=== PATIENT | male | born 1960 | race Caucasian/White ===

== ENCOUNTER 2022-01-21 20:34 | Emergency (ER) | payer SELFPAY ==
[2022-01-21] MEDS ORDERED: Ondansetron PF 4 MG/2 ML Vial ONE (21:19)
[2022-01-21] MEDS ORDERED: Pantoprazole 40 MG VIAL ONE (21:19)
[2022-01-21] MEDS ORDERED: Pantoprazole 80 MG in Sodium Chloride 0.9% 100 ML IVPB SCH (21:30)
[2022-01-21 21:39] LABS: #Eosinphils 0.4 thou/uL (0.0-0.7); #Lymphocytes 2.2 thou/uL (1.20-3.40); #Monocytes 0.7 thou/uL (0.11-0.59); #Neutrophils 5.3 thou/uL (1.40-6.50); %Basophils 0.5 % (0.0-1.0); %Eosinophils 5.1 % (0.0-10.0); %Monocytes 8.3 % (0.0-10.0); Hemoglobin 13.8 g/dL (14.0-18.0); Mean Corpuscular Hemoglobin 32.4 pg (27.0-31.0); Mean Corpuscular Volume 95.1 fl (78.0-98.0); Mean Platelet Volume 6.9 fL (7.4-10.4); Platelet Count 183 thou/uL (130-400); RBC Distribution Width 12.3 % (11.5-14.5); Red Blood Cell (RBC) Count 4.27 mill/uL (4.70-6.10); White Blood Cell (WBC) Count 8.8 thou/uL (4.8-10.8)
[2022-01-21 22:14] LABS: Anion Gap 15 mmol/L (10-20); BUN (Urea Nitrogen) Less than 4 mg/dL (8.4-25.7); Calc. Creatinine Clearance 0 mL/min (70-130); Carbon Dioxide 20 mmol/L (22-29); Chloride 100 mmol/L (98-107); Potassium 3.6 mmol/L (3.5-5.1); Sodium 131 mmol/L (136-145)
[2022-01-21 22:15] LABS: ALT (SGPT) 17 U/L (8-55); AST (SGOT) 21 U/L (5-34); Acetaminophen Less than 10.0 mcg/mL (10.0-30.0); Alcohol 200 mg/dL (Less than 10); Alkaline Phosphatase 74 U/L (40-110); Bilirubin, Total 0.6 mg/dL (0.2-1.2); CK (CPK) 114 U/L (30-200); Calcium 8.8 mg/dL (7.8-10.44); Estimated GFR 106; Globulin 2.8 g/dL (2.4-3.5); Glucose 111 mg/dL (70-105); Lipase 5 U/L (8-78); Protein, Total 6.8 g/dL (6.0-8.3); Salicylate Less than 8.0 mg/dL (15.0-30.0)
[2022-01-21 22:26] LABS: Bilirubin Negative (Negative); Blood, Urine Negative (Negative); Clarity Clear (Clear); Glucose, Urine (Dipstick) Normal (Negative); Ketone, Urine Negative (Negative); Leukocyte Negative Leu/uL (Negative); Nitrite Negative (Negative); Protein, Urine (Dipstick) Negative (Neg-Trace); Specific Gravity, Urine 1.003 (1.002-1.036); Urobilinogen Normal mg/dL (Less than 2); pH, Urine 6.5 (5.0-9.0)
[2022-01-21 22:35] LABS: Amphetamine Not Detected (NotDetected); Barbiturates Screen Not Detected (NotDetected); Benzodiazepine Screen Detected (NotDetected); Cocaine Metabolite Screen Not Detected (NotDetected); Methadone Not Detected (NotDetected); Methamphetamine Not Detected (NotDetected); Opiate Screen Not Detected (NotDetected); Oxycodone Screen Not Detected (NotDetected); Phencyclidine (PCP) Not Detected (NotDetected); THC/Cannabinoid Screen Detected (NotDetected); Tricyclic Screen Not Detected (NotDetected)
[2022-01-22] MEDS ORDERED: Pantoprazole 80 MG, Admixture Fee 1 EACH in Sodium Chloride 0.9% 100 ML IVPB SCH (07:00)
[2022-01-22] MEDS ORDERED: Acetaminophen 500 MG TAB ONE (11:43)
[2022-01-22] MEDS ORDERED: Lidocaine Viscous Sol 2% 15 ml UD Cup ONE ×4 (14:53→23:38)
[2022-01-22] MEDS ORDERED: Mag-Al 1200 mg/1200 mg/30 ML UDCUP ONE ×4 (14:53→23:38)
== END 2022-01-23 09:05 | disposition home or self-care (01) ==
LOC: ERS 20:34
DX: F32.A Depression, unspecified (principal); F10.20 Alcohol dependence, uncomplicated; F19.10 Other psychoactive substance abuse, uncomplicated; E03.9 Hypothyroidism, unspecified
CPT/HCPCS: 36415; 71045; 80053; 80306; 80307; 81003; 82550; 83690; 84443; 85025; 93005; 96374; C9113; J2405; J3490

== ENCOUNTER 2023-03-30 19:24 | Emergency (ER) | payer SELFPAY ==
[2023-03-31] MEDS ORDERED: Acetaminophen 325 MG Suppository ONE (02:31)
[2023-03-31] MEDS ORDERED: Acetaminophen 325 MG TAB ONE (02:32)
== END 2023-03-31 03:58 | disposition home or self-care (01) ==
LOC: ERS 19:24
DX: S00.81XA Abrasion of other part of head, initial encounter (principal); S10.11XA Abrasion of throat, initial encounter; F17.210 Nicotine dependence, cigarettes, uncomplicated; E03.9 Hypothyroidism, unspecified; Z79.890 Hormone replacement therapy; W19.XXXA Unspecified fall, initial encounter
CPT/HCPCS: 70450; 72125; 96372

== ENCOUNTER 2023-04-17 00:06 | Inpatient (IN) | payer OTHER, SELFPAY ==
[2023-04-17] MEDS ORDERED: Acetaminophen 500 MG TAB ONE (00:20)
[2023-04-17] MEDS ORDERED: Ketorolac Tromethamine 30 MG (1 mL) VIAL ONE (00:21)
[2023-04-17 00:54] LABS: #Basophils 0.1 thou/uL (0.0-0.2); #Eosinphils 0.3 thou/uL (0.0-0.7); #Monocytes 0.9 thou/uL (0.11-0.59); #Neutrophils 11.4 thou/uL (1.40-6.50); %Basophils 0.4 % (0.0-1.0); %Eosinophils 2.2 % (0.0-10.0); %Lymphocytes 14.3 % (21.0-51.0); %Monocytes 6.1 % (0.0-10.0); %Neutrophils 75.9 % (42.0-75.0); Hematocrit 42.3 % (42.0-52.0); Hemoglobin 13.9 g/dL (14.0-18.0); Mean Corpuscular HGB CONC 32.9 g/dL (32.0-36.0); Mean Corpuscular Hemoglobin 29.4 pg (27.0-31.0); Mean Corpuscular Volume 89.6 fl (78.0-98.0); Mean Platelet Volume 8.9 fL (7.4-10.4); Platelet Count 381 10x3/uL (130-400); Red Blood Cell (RBC) Count 4.72 mill/uL (4.70-6.10)
[2023-04-17 01:17] LABS: ALT (SGPT) 9 U/L (8-55); AST (SGOT) 14 U/L (5-34); Albumin 3.3 g/dL (3.4-4.8); Alkaline Phosphatase 63 U/L (40-110); Anion Gap 11 mmol/L (10-20); BUN (Urea Nitrogen) 11 mg/dL (8.4-25.7); Bilirubin, Total 0.2 mg/dL (0.2-1.2); Calc. Creatinine Clearance 0 mL/min (70-130); Calcium 8.3 mg/dL (7.8-10.44); Carbon Dioxide 24 mmol/L (23-31); Chloride 103 mmol/L (98-107); Estimated GFR 101; Globulin 2.3 g/dL (2.4-3.5); Glucose 151 mg/dL (80-115); Potassium 4.4 mmol/L (3.5-5.1); Protein, Total 5.6 g/dL (5.8-8.1); Sodium 134 mmol/L (136-145)
[2023-04-17 01:21] LABS: Troponin I Less than 0.010 ng/mL (< 0.028)
[2023-04-17] MEDS ORDERED: Sodium Chloride 0.9% 100 ML ONE (03:19)
[2023-04-17] MEDS ORDERED: Piperacillin/Tazobactam 4.5 GM VIAL ONE (03:19)
[2023-04-17 03:56] LABS: Lipase 161 U/L (8-78); Magnesium 1.8 mg/dL (1.6-2.6)
[2023-04-17] MEDS ORDERED: Ondansetron PF 4 MG/2 ML Vial ONE (04:45)
[2023-04-17] MEDS ORDERED: Morphine 4 MG/ML VIAL ONE (04:45)
[2023-04-17] MEDS ORDERED: Ondansetron ODT 4 MG TAB SL PRN (06:00)
[2023-04-17] MEDS ORDERED: Ondansetron PF 4 MG/2 ML Vial IVP PRN (06:00)
[2023-04-17 06:33] VITALS: BMI 26.6
[2023-04-17 06:43] LABS: Troponin I Less than 0.010 ng/mL (< 0.028)
[2023-04-17] MEDS ORDERED: Senokot S 8.6-50 MG TAB PO PRN (07:52)
[2023-04-17] MEDS ORDERED: Ketorolac Tromethamine 30 MG (1 mL) VIAL IVP PRN (07:54)
[2023-04-17] MEDS ORDERED: Dextrose 5% in Water 1,000 ML IV PRN (07:56)
[2023-04-17] MEDS ORDERED: Glucagon 1 MG/ML KIT IM PRN (07:56)
[2023-04-17] MEDS ORDERED: Dextrose 50% Abboject 50 ML SYRINGE SLOW IVP PRN (07:56)
[2023-04-17] MEDS ORDERED: metFORMIN 500 MG TAB PO SCH (08:00)
[2023-04-17] MEDS: Morphine 4 MG/ML VIAL SLOW IVP PRN ×2 (09:03→13:23)
[2023-04-17] MEDS: Sodium Chloride 0.9% 1,000 ML IV SCH ×2 (09:04→17:53)
[2023-04-17] MEDS ORDERED: Piperacillin/Tazobactam 4.5 GM in Sodium Chloride 0.9% 100 ML IVPB SCH (09:45)
[2023-04-17] MEDS ORDERED: Pantoprazole 40 MG VIAL IVP SCH (10:00)
[2023-04-17 10:41] LABS: Hemoglobin A1c 6.3 % (4.0-6.0)
[2023-04-17 10:50] LABS: Anion Gap 9 mmol/L (10-20); BUN (Urea Nitrogen) 8 mg/dL (8.4-25.7); Calc. Creatinine Clearance 119 mL/min (70-130); Calcium 8.1 mg/dL (7.8-10.44); Carbon Dioxide 25 mmol/L (23-31); Chloride 106 mmol/L (98-107); Estimated GFR 104; Glucose 95 mg/dL (80-115); Lipase 225 U/L (8-78); Potassium 4.2 mmol/L (3.5-5.1); Sodium 136 mmol/L (136-145)
[2023-04-17 10:51] LABS: Cardiac Risk 3.9 (Less than 4.5)
[2023-04-17 10:57] LABS: Troponin I Less than 0.010 ng/mL (< 0.028)
[2023-04-17] MEDS ORDERED: Iopamidol 370 76% 100 ML VIAL ONE ×2 (14:21→14:22)
[2023-04-17] MEDS: Piperacillin/Tazobactam 3.375 GM in Sodium Chloride 0.9% 100 ML IVPB SCH ×2 (14:44→21:23)
[2023-04-17] MEDS: Morphine 2 MG/ML VIAL SLOW IVP PRN ×2 (17:52→21:24)
[2023-04-17] MEDS: Pantoprazole 40 MG VIAL IVP SCH (20:03)
[2023-04-17] MEDS: Acetaminophen 325 MG TAB PO PRN (20:03)
[2023-04-17] MEDS: Insulin Regular 300 UNITS/3 ML VIAL SC PRN (20:04)
[2023-04-18] MEDS: Piperacillin/Tazobactam 3.375 GM in Sodium Chloride 0.9% 100 ML IVPB SCH ×3 (05:20→21:02)
[2023-04-18] MEDS: Levothyroxine Sodium 50 MCG TAB PO SCH (05:20)
[2023-04-18] MEDS: Morphine 2 MG/ML VIAL SLOW IVP PRN ×4 (05:21→18:53)
[2023-04-18 06:31] LABS: #Basophils 0.1 thou/uL (0.0-0.2); #Eosinphils 0.3 thou/uL (0.0-0.7); #Monocytes 0.8 thou/uL (0.11-0.59); #Neutrophils 8.7 thou/uL (1.40-6.50); %Basophils 0.6 % (0.0-1.0); %Eosinophils 2.9 % (0.0-10.0); %Monocytes 6.8 % (0.0-10.0); %Neutrophils 74.9 % (42.0-75.0); Hemoglobin 12.3 g/dL (14.0-18.0); Mean Corpuscular HGB CONC 32.4 g/dL (32.0-36.0); Mean Corpuscular Hemoglobin 29.6 pg (27.0-31.0); Mean Corpuscular Volume 91.6 fl (78.0-98.0); Mean Platelet Volume 9.4 fL (7.4-10.4); Platelet Count 356 10x3/uL (130-400); RBC Distribution Width 14.7 % (11.5-14.5); Red Blood Cell (RBC) Count 4.15 mill/uL (4.70-6.10); White Blood Cell (WBC) Count 11.6 10x3/uL (4.8-10.8)
[2023-04-18 07:05] LABS: ALT (SGPT) 7 U/L (8-55); AST (SGOT) 10 U/L (5-34); Albumin 2.9 g/dL (3.4-4.8); Alkaline Phosphatase 52 U/L (40-110); Anion Gap 8 mmol/L (10-20); BUN (Urea Nitrogen) 6 mg/dL (8.4-25.7); Bilirubin, Total 0.5 mg/dL (0.2-1.2); Calc. Creatinine Clearance 118 mL/min (70-130); Carbon Dioxide 26 mmol/L (23-31); Chloride 105 mmol/L (98-107); Estimated GFR 104; Glucose 83 mg/dL (80-115); Potassium 4.2 mmol/L (3.5-5.1); Protein, Total 4.9 g/dL (5.8-8.1); Sodium 135 mmol/L (136-145)
[2023-04-18] MEDS: Pantoprazole 40 MG VIAL IVP SCH ×2 (08:12→20:16)
[2023-04-18] MEDS ORDERED: Pantoprazole 40 MG VIAL IVP SCH (09:00)
[2023-04-18] MEDS ORDERED: PROPOFOL 20 ML ONE (09:07)
[2023-04-18] MEDS ORDERED: Lidocaine 2% PF 5 ML VIAL ONE (09:07)
[2023-04-18] MEDS ORDERED: PROPOFOL 0 ML ONE (09:07)
[2023-04-18] MEDS ORDERED: Ondansetron HCl/PF 4 MG/2 ML Vial IVP PRN (09:23)
[2023-04-18] MEDS ORDERED: Promethazine HCl 25 MG/ML VIAL IM PRN (09:23)
[2023-04-18] MEDS ORDERED: traMADol HCl 50 MG TAB PO PRN (10:42)
[2023-04-18] MEDS: Acetaminophen 325 MG TAB PO PRN (20:22)
[2023-04-19] MEDS: Morphine 2 MG/ML VIAL SLOW IVP PRN ×3 (01:42→09:56)
[2023-04-19] MEDS: Levothyroxine Sodium 50 MCG TAB PO SCH (05:50)
[2023-04-19] MEDS: Insulin Regular 300 UNITS/3 ML VIAL SC PRN (05:51)
[2023-04-19] MEDS: Piperacillin/Tazobactam 3.375 GM in Sodium Chloride 0.9% 100 ML IVPB SCH (05:51)
[2023-04-19 07:22] LABS: #Basophils 0.1 thou/uL (0.0-0.2); #Eosinphils 0.3 thou/uL (0.0-0.7); #Monocytes 0.7 thou/uL (0.11-0.59); #Neutrophils 7.2 thou/uL (1.40-6.50); %Basophils 0.7 % (0.0-1.0); %Eosinophils 3.2 % (0.0-10.0); %Lymphocytes 14.6 % (21.0-51.0); %Monocytes 7.3 % (0.0-10.0); %Neutrophils 73.5 % (42.0-75.0); Hematocrit 42.3 % (42.0-52.0); Hemoglobin 13.6 g/dL (14.0-18.0); Mean Corpuscular HGB CONC 32.2 g/dL (32.0-36.0); Mean Corpuscular Hemoglobin 29.4 pg (27.0-31.0); Mean Corpuscular Volume 91.4 fl (78.0-98.0); Mean Platelet Volume 8.9 fL (7.4-10.4); Platelet Count 418 10x3/uL (130-400); RBC Distribution Width 14.5 % (11.5-14.5); Red Blood Cell (RBC) Count 4.63 mill/uL (4.70-6.10); White Blood Cell (WBC) Count 9.8 10x3/uL (4.8-10.8)
[2023-04-19 07:43] LABS: Anion Gap 11 mmol/L (10-20); BUN (Urea Nitrogen) 8 mg/dL (8.4-25.7); Calc. Creatinine Clearance 105 mL/min (70-130); Calcium 8.8 mg/dL (7.8-10.44); Carbon Dioxide 27 mmol/L (23-31); Chloride 102 mmol/L (98-107); Estimated GFR 100; Glucose 113 mg/dL (80-115); Potassium 4.1 mmol/L (3.5-5.1); Sodium 136 mmol/L (136-145)
[2023-04-19 08:15] VITALS: TEMP 98.3
[2023-04-19] MEDS: Acetaminophen 325 MG TAB PO PRN (08:40)
[2023-04-19] MEDS: Pantoprazole 40 MG VIAL IVP SCH (08:40)
[2023-04-19 13:46] VITALS: BP 133/85
== END 2023-04-19 12:47 | disposition home or self-care (01) | DRG 439 ==
LOC: ERS 00:06 → T4-A 05:46
PROVIDERS: ADMIT Student in an Organized Health Care Education/Training Program; ATTEND Internal Medicine
PROC: 0DB78ZX Excision of Stomach, Pylorus, Via Natural or Artificial Opening Endoscopic, Diagnostic (ICD-10-PCS; principal; 2023-04-18)
DX: K85.90 Acute pancreatitis without necrosis or infection, unspecified (principal); I82.891 Chronic embolism and thrombosis of other specified veins; Z59.01 Sheltered homelessness; K76.6 Portal hypertension; K86.3 Pseudocyst of pancreas; E03.9 Hypothyroidism, unspecified; K86.1 Other chronic pancreatitis; K31.89 Other diseases of stomach and duodenum; E11.9 Type 2 diabetes mellitus without complications; D73.89 Other diseases of spleen; M54.9 Dorsalgia, unspecified; F17.210 Nicotine dependence, cigarettes, uncomplicated; L40.9 Psoriasis, unspecified; F10.10 Alcohol abuse, uncomplicated; K29.70 Gastritis, unspecified, without bleeding; Z79.890 Hormone replacement therapy; Z79.899 Other long term (current) drug therapy
CPT/HCPCS: 36415; 36416; 71045; 71275; 74177; 80048; 80053; 80061; 83036; 83690; 83735; 84443; 84484; 85025; 85379; 86140; 87040; 88305; 93005; 94760; 96365; 96372; 96375; C9113; J1815; J1885; J2001; J2270; J2272; J2405; J2543; J2704; J3490; J7050; Q9967

== ENCOUNTER 2023-11-22 16:09 | Inpatient (IN) | payer OTHER ==
[~2023-11-22 16:09] MED LIST: Iopamidol-370 76% 500 ML MDV (1 ML CHARGE) ONE
[2023-11-22 16:38] LABS: #Basophils 0.05 10x3/uL (0.0-0.2); %Basophils 0.6 % (0.0-1.0); %Eosinophils 1.2 % (0.0-10.0); %Lymphocytes 21.5 % (21.0-51.0); %Monocytes 7.5 % (0.0-10.0); %Neutrophils 68.7 % (42.0-75.0); Hematocrit 38.7 % (42.0-52.0); Hemoglobin 13.1 g/dL (14.0-18.0); Mean Corpuscular HGB CONC 33.9 g/dL (32.0-36.0); Mean Corpuscular Hemoglobin 30.1 pg (27.0-31.0); Mean Platelet Volume 8.6 fL (7.4-10.4); Platelet Count 201 10x3/uL (130-400); RBC Distribution Width 14.6 % (11.5-14.5); Red Blood Cell (RBC) Count 4.35 mill/uL (4.70-6.10)
[2023-11-22 17:11] LABS: Troponin I Less than 0.010 ng/mL (< 0.028)
[2023-11-22 17:12] LABS: Acetaminophen Less than 10 mcg/mL (Less than 10); Alcohol 117.8 mg/dL (Less than 10); Salicylate Less than 8.0 mg/dL (Less than 8.0)
[2023-11-22 17:17] LABS: ALT (SGPT) 12 U/L (8-55); AST (SGOT) 52 U/L (5-34); Albumin 3.3 g/dL (3.4-4.8); Alkaline Phosphatase 62 U/L (40-110); Anion Gap 19 mmol/L (10-20); BUN (Urea Nitrogen) 5 mg/dL (8.4-25.7); Bilirubin, Total 0.9 mg/dL (0.2-1.2); Calc. Creatinine Clearance 0 mL/min (70-130); Calcium 8.4 mg/dL (7.8-10.44); Carbon Dioxide 15 mmol/L (23-31); Chloride 97 mmol/L (98-107); Estimated GFR 102; Glucose 284 mg/dL (80-115); Potassium 5.2 mmol/L (3.5-5.1); Protein, Total 7.3 g/dL (5.8-8.1); Sodium 126 mmol/L (136-145)
[2023-11-22] MEDS ORDERED: Morphine 2 MG/ML VIAL ONE (17:38)
[2023-11-22] MEDS ORDERED: Ondansetron PF 4 MG/2 ML Vial ONE (17:39)
[2023-11-22 18:04] LABS: Alcohol 96.9 mg/dL (Less than 10)
[2023-11-22 18:38] LABS: Bacteria/HPF None Seen HPF (None Seen); Bilirubin Negative (Negative); Blood, Urine Negative (Negative); CAUTI Indications for Culture Alt mental st,lethar; Clarity Clear (Clear); Glucose, Urine (Dipstick) Greater than 1000 mg/dL (Negative); Ketone, Urine Negative (Negative); Leukocyte Negative Leu/uL (Negative); Nitrite Negative (Negative); Protein, Urine (Dipstick) Negative (Neg-Trace); RBC/HPF 0-3 HPF (0-3); Specific Gravity, Urine 1.005 (1.002-1.036); Squamous Epithelial None Seen HPF (0-3); Urobilinogen Normal mg/dL (Less than 2); WBC/HPF 0-3 HPF (0-3); pH, Urine 5.5 (5.0-9.0)
[2023-11-22 18:40] LABS: Urine Culture Reflex No No
[2023-11-22] MEDS ORDERED: LORazepam 2 MG/ML SYR.(CARPUJECT) ONE (20:20)
[2023-11-22] MEDS ORDERED: Thiamine HCl 200 MG/2 ML VIAL ONE (21:14)
[2023-11-22] MEDS ORDERED: Pantoprazole 40 MG VIAL ONE (21:14)
[2023-11-22] MEDS ORDERED: Morphine 4 MG/ML VIAL ONE (21:14)
[2023-11-22] MEDS ORDERED: Lorazepam 2 MG/ML VIAL IM PRN (22:35)
[2023-11-22] MEDS ORDERED: Ondansetron ODT 4 MG TAB PO PRN ×2 (22:35)
[2023-11-22] MEDS ORDERED: Acetaminophen 325 MG TAB PO PRN (22:35)
[2023-11-22] MEDS ORDERED: Ondansetron PF 4 MG/2 ML Vial IVP PRN (22:35)
[2023-11-22] MEDS ORDERED: Acetaminophen 650 MG Suppository PR PRN (22:35)
[2023-11-22] MEDS ORDERED: Electrolyte Replacement Protocol 1 EACH FS SCH (22:45)
[2023-11-22 23:49] VITALS: BMI 25.7
[2023-11-22] MEDS: Dextrose 5%-Lactated Ringers 1,000 ML IV SCH (23:57)
[2023-11-22] MEDS: Thiamine HCl 200 MG/2 ML VIAL SLOW IVP SCH (23:57)
[2023-11-22] MEDS: Lorazepam 1 MG TAB PO SCH (23:57)
[2023-11-23] MEDS: Morphine 2 MG/ML VIAL SLOW IVP PRN (01:21)
[2023-11-23] MEDS: Levothyroxine Sodium 88 MCG TAB PO SCH (05:43)
[2023-11-23 05:46] LABS: #Basophils 0.05 10x3/uL (0.0-0.2); %Basophils 0.9 % (0.0-1.0); %Eosinophils 2.8 % (0.0-10.0); %Lymphocytes 32.5 % (21.0-51.0); %Monocytes 9.8 % (0.0-10.0); %Neutrophils 53.5 % (42.0-75.0); Hematocrit 39.3 % (42.0-52.0); Hemoglobin 12.9 g/dL (14.0-18.0); Mean Corpuscular HGB CONC 32.8 g/dL (32.0-36.0); Mean Corpuscular Hemoglobin 29.7 pg (27.0-31.0); Mean Corpuscular Volume 90.6 fL (78.0-98.0); Platelet Count 227 10x3/uL (130-400); RBC Distribution Width 15.1 % (11.5-14.5); Red Blood Cell (RBC) Count 4.34 mill/uL (4.70-6.10)
[2023-11-23 06:05] LABS: ALT (SGPT) 7 U/L (8-55); AST (SGOT) 13 U/L (5-34); Albumin 3.1 g/dL (3.4-4.8); Alkaline Phosphatase 59 U/L (40-110); Anion Gap 13 mmol/L (10-20); BUN (Urea Nitrogen) 6 mg/dL (8.4-25.7); Calc. Creatinine Clearance 106 mL/min (70-130); Calcium 8.4 mg/dL (7.8-10.44); Carbon Dioxide 22 mmol/L (23-31); Chloride 105 mmol/L (98-107); Estimated GFR 102; Globulin 2.7 g/dL (2.4-3.5); Glucose 205 mg/dL (80-115); Protein, Total 5.8 g/dL (5.8-8.1); Sodium 136 mmol/L (136-145)
[2023-11-23 06:11] LABS: Hemoglobin A1c 9.5 % (4.0-6.0)
[2023-11-23] MEDS ORDERED: Dextrose 5% in Water 1,000 ML IV PRN (06:42)
[2023-11-23] MEDS ORDERED: Glucagon 1 MG/ML KIT IM PRN (06:42)
[2023-11-23] MEDS: Nadolol 40 MG TAB PO SCH (08:37)
[2023-11-23] MEDS: Folic Acid 1 MG TAB PO SCH (08:37)
[2023-11-23] MEDS: Pancrelipase DR 12,000 1 CAP PO SCH (08:37)
[2023-11-23] MEDS: Pantoprazole DR 40 MG TAB PO SCH (08:37)
[2023-11-23] MEDS: Multivit, Therapeutic 1 TAB PO SCH (08:37)
[2023-11-23] MEDS: Amlodipine 5 MG TAB PO SCH (08:37)
[2023-11-23] MEDS: metFORMIN 500 MG TAB PO SCH (08:37)
[2023-11-23] MEDS: Lorazepam 1 MG TAB PO PRN ×2 (08:42→14:36)
[2023-11-23] MEDS: Insulin Lispro 100 UNIT/ML 10 ML VIAL SC PRN (12:13)
[2023-11-23] MEDS: Dextrose 50% Abboject 50 ML SYRINGE SLOW IVP PRN (16:06)
[2023-11-24 08:17] LABS: Anion Gap 14 mmol/L (10-20); BUN (Urea Nitrogen) Less than 4 mg/dL (8.4-25.7); Calc. Creatinine Clearance 110 mL/min (70-130); Calcium 8.5 mg/dL (7.8-10.44); Carbon Dioxide 21 mmol/L (23-31); Chloride 106 mmol/L (98-107); Estimated GFR 104; Glucose 200 mg/dL (80-115); Potassium 4.2 mmol/L (3.5-5.1); Sodium 137 mmol/L (136-145)
[2023-11-24 14:21] VITALS: BP 125/78; TEMP 98.6
[2023-11-24] MEDS ORDERED: Lorazepam 1 MG TAB PO PRN (22:35)
[2023-11-24] MEDS ORDERED: Lorazepam 0.5 MG TAB PO SCH (22:45)
[2023-11-25] MEDS ORDERED: Thiamine 100 MG TAB PO SCH (21:00)
[2023-11-25] MEDS ORDERED: Lorazepam 0.5 MG TAB PO PRN (22:35)
== END 2023-11-24 13:45 | disposition home or self-care (01) | DRG 439 ==
LOC: ERS 16:09 → T4-B 22:17
PROVIDERS: ADMIT Student in an Organized Health Care Education/Training Program; ATTEND Internal Medicine
DX: K85.90 Acute pancreatitis without necrosis or infection, unspecified (principal); E87.1 Hypo-osmolality and hyponatremia; Z59.00 Homelessness unspecified; F10.10 Alcohol abuse, uncomplicated; I10 Essential (primary) hypertension; E03.9 Hypothyroidism, unspecified; E11.9 Type 2 diabetes mellitus without complications; Z79.899 Other long term (current) drug therapy; Z79.84 Long term (current) use of oral hypoglycemic drugs; K86.1 Other chronic pancreatitis; Z87.891 Personal history of nicotine dependence; E87.5 Hyperkalemia
CPT/HCPCS: 36415; 36416; 74177; 80048; 80053; 80307; 81001; 83036; 83690; 84484; 85025; 87086; 93005; 96361; 96374; 96375; 96376; J2060; J2272; J2405; J2470; J3411; J7999; Q9967

== ENCOUNTER 2023-12-04 18:29 | Inpatient (IN) | payer OTHER ==
[2023-12-04] MEDS ORDERED: Ondansetron PF 4 MG/2 ML Vial ONE (18:54)
[2023-12-04] MEDS ORDERED: fentaNYL 50 mcg/mL 1 mL Vial ONE ×2 (18:54→21:21)
[2023-12-04 19:12] LABS: #Basophils 0.05 10x3/uL (0.0-0.2); %Basophils 0.4 % (0.0-1.0); %Eosinophils 1.4 % (0.0-10.0); %Lymphocytes 25.9 % (21.0-51.0); %Monocytes 5.7 % (0.0-10.0); %Neutrophils 65.8 % (42.0-75.0); Hematocrit 38.2 % (42.0-52.0); Hemoglobin 12.7 g/dL (14.0-18.0); Mean Corpuscular HGB CONC 33.2 g/dL (32.0-36.0); Mean Corpuscular Hemoglobin 30.6 pg (27.0-31.0); Mean Platelet Volume 8.6 fL (7.4-10.4); Platelet Count 247 10x3/uL (130-400); RBC Distribution Width 14.6 % (11.5-14.5); Red Blood Cell (RBC) Count 4.15 mill/uL (4.70-6.10)
[2023-12-04 19:25] LABS: PTT 30.8 sec (22.9-36.1); Prothrombin Time 13.1 sec (12.0-14.7)
[2023-12-04 19:32] LABS: ALT (SGPT) 6 U/L (8-55); AST (SGOT) 14 U/L (5-34); Albumin 3.4 g/dL (3.4-4.8); Alkaline Phosphatase 60 U/L (40-110); Anion Gap 15 mmol/L (10-20); BUN (Urea Nitrogen) 4 mg/dL (8.4-25.7); Bilirubin, Total 0.7 mg/dL (0.2-1.2); Calc. Creatinine Clearance 0 mL/min (70-130); Calcium 8.4 mg/dL (7.8-10.44); Carbon Dioxide 16 mmol/L (23-31); Chloride 97 mmol/L (98-107); Estimated GFR 105; Globulin 2.8 g/dL (2.4-3.5); Glucose 181 mg/dL (80-115); Lipase 16 U/L (8-78); Potassium 3.5 mmol/L (3.5-5.1); Protein, Total 6.2 g/dL (5.8-8.1); Sodium 124 mmol/L (136-145)
[2023-12-04 19:33] LABS: Troponin I Less than 0.010 ng/mL (< 0.028)
[2023-12-04 19:33] LABS: Acetaminophen Less than 10 mcg/mL (Less than 10); Alcohol 231.7 mg/dL (Less than 10); Salicylate Less than 8.0 mg/dL (Less than 8.0)
[2023-12-04 20:23] LABS: Amphetamine Not Detected (NotDetected); Barbiturates Screen Not Detected (NotDetected); Benzodiazepine Screen Not Detected (NotDetected); Cocaine Metabolite Screen Not Detected (NotDetected); Methadone Not Detected (NotDetected); Methamphetamine Not Detected (NotDetected); Opiate Screen Not Detected (NotDetected); Oxycodone Screen Not Detected (NotDetected); Phencyclidine (PCP) Not Detected (NotDetected); THC/Cannabinoid Screen Not Detected (NotDetected); Tricyclic Screen Not Detected (NotDetected)
[2023-12-04] MEDS ORDERED: Acetaminophen 650 MG Suppository PR PRN (21:41)
[2023-12-04] MEDS ORDERED: Lorazepam 1 MG TAB PO PRN (21:44)
[2023-12-04] MEDS ORDERED: Lorazepam 2 MG/ML VIAL IM PRN (21:44)
[2023-12-04] MEDS ORDERED: Morphine 4 MG/ML VIAL SLOW IVP PRN (21:44)
[2023-12-04] MEDS ORDERED: Electrolyte Replacement Protocol 1 EACH FS SCH (21:45)
[2023-12-04 22:06] LABS: #Basophils 0.05 10x3/uL (0.0-0.2); %Basophils 0.5 % (0.0-1.0); %Eosinophils 2.4 % (0.0-10.0); %Monocytes 5.9 % (0.0-10.0); %Neutrophils 60.4 % (42.0-75.0); Hematocrit 38.2 % (42.0-52.0); Hemoglobin 12.5 g/dL (14.0-18.0); Mean Corpuscular HGB CONC 32.7 g/dL (32.0-36.0); Mean Corpuscular Hemoglobin 30.6 pg (27.0-31.0); Mean Corpuscular Volume 93.4 fL (78.0-98.0); Mean Platelet Volume 8.6 fL (7.4-10.4); Platelet Count 231 10x3/uL (130-400); RBC Distribution Width 14.8 % (11.5-14.5); Red Blood Cell (RBC) Count 4.09 mill/uL (4.70-6.10)
[2023-12-04] MEDS ORDERED: Insulin Lispro 100 UNIT/ML 10 ML VIAL SC PRN (22:06)
[2023-12-04] MEDS ORDERED: Dextrose 5% in Water 1,000 ML IV PRN (22:06)
[2023-12-04] MEDS ORDERED: Glucagon 1 MG/ML KIT IM PRN (22:06)
[2023-12-04] MEDS ORDERED: Dextrose 50% Abboject 50 ML SYRINGE SLOW IVP PRN (22:06)
[2023-12-04 22:21] LABS: Lactic Acid 2.44 mmol/L (0.5-2.2)
[2023-12-04 22:25] LABS: Anion Gap 13 mmol/L (10-20); BUN (Urea Nitrogen) Less than 4 mg/dL (8.4-25.7); Calc. Creatinine Clearance 0 mL/min (70-130); Calcium 7.7 mg/dL (7.8-10.44); Carbon Dioxide 16 mmol/L (23-31); Chloride 103 mmol/L (98-107); Estimated GFR 107; Glucose 130 mg/dL (80-115); Magnesium 1.6 mg/dL (1.6-2.6); Phosphorus 3.2 mg/dL (2.3-4.7); Potassium 3.4 mmol/L (3.5-5.1); Sodium 129 mmol/L (136-145)
[2023-12-04] MEDS ORDERED: Pantoprazole 40 MG VIAL ONE (22:34)
[2023-12-05] MEDS: Morphine 2 MG/ML VIAL SLOW IVP PRN (00:29)
[2023-12-05] MEDS: Thiamine HCl 200 MG/2 ML VIAL SLOW IVP SCH (00:29)
[2023-12-05] MEDS: Sodium Chloride 0.9% 1,000 ML IV SCH (00:29)
[2023-12-05 01:39] VITALS: BMI 25.4
[2023-12-05 04:26] LABS: #Basophils 0.05 10x3/uL (0.0-0.2); %Basophils 0.7 % (0.0-1.0); %Eosinophils 3.1 % (0.0-10.0); %Lymphocytes 31.4 % (21.0-51.0); %Monocytes 5.8 % (0.0-10.0); Hemoglobin 12.7 g/dL (14.0-18.0); Mean Corpuscular HGB CONC 32.6 g/dL (32.0-36.0); Mean Corpuscular Hemoglobin 29.7 pg (27.0-31.0); Mean Corpuscular Volume 91.3 fL (78.0-98.0); Platelet Count 249 10x3/uL (130-400); RBC Distribution Width 14.9 % (11.5-14.5); Red Blood Cell (RBC) Count 4.27 mill/uL (4.70-6.10)
[2023-12-05 04:54] LABS: ALT (SGPT) 6 U/L (8-55); AST (SGOT) 12 U/L (5-34); Albumin 3.1 g/dL (3.4-4.8); Alkaline Phosphatase 57 U/L (40-110); Anion Gap 12 mmol/L (10-20); BUN (Urea Nitrogen) Less than 4 mg/dL (8.4-25.7); Bilirubin, Total 0.6 mg/dL (0.2-1.2); Calc. Creatinine Clearance 114 mL/min (70-130); Carbon Dioxide 20 mmol/L (23-31); Chloride 110 mmol/L (98-107); Estimated GFR 104; Globulin 2.6 g/dL (2.4-3.5); Glucose 124 mg/dL (80-115); Protein, Total 5.7 g/dL (5.8-8.1); Sodium 138 mmol/L (136-145)
[2023-12-05] MEDS: Enoxaparin 40 MG (0.4 mL) SYRINGE SC SCH (07:59)
[2023-12-05] MEDS: Folic Acid 1 MG TAB PO SCH (07:59)
[2023-12-05] MEDS: Magnesium 2 GM/50 ML(in water) 2 GM in Premix 1 BAG IVPB SCH (07:59)
[2023-12-05] MEDS: Multivit, Therapeutic 1 TAB PO SCH (07:59)
[2023-12-05] MEDS: Pantoprazole 40 MG VIAL IVP SCH (07:59)
[2023-12-05] MEDS ORDERED: Levothyroxine Sodium 50 MCG TAB PO SCH (09:00)
[2023-12-05] MEDS ORDERED: Lorazepam 1 MG TAB PO PRN (21:44)
[2023-12-06 04:50] LABS: #Basophils 0.04 10x3/uL (0.0-0.2); %Basophils 0.5 % (0.0-1.0); %Eosinophils 2.1 % (0.0-10.0); %Lymphocytes 21.3 % (21.0-51.0); %Neutrophils 68.3 % (42.0-75.0); Hematocrit 39.3 % (42.0-52.0); Hemoglobin 12.8 g/dL (14.0-18.0); Mean Corpuscular HGB CONC 32.6 g/dL (32.0-36.0); Mean Corpuscular Hemoglobin 30.7 pg (27.0-31.0); Mean Corpuscular Volume 94.2 fL (78.0-98.0); Mean Platelet Volume 9.2 fL (7.4-10.4); Platelet Count 226 10x3/uL (130-400); RBC Distribution Width 15.2 % (11.5-14.5); Red Blood Cell (RBC) Count 4.17 mill/uL (4.70-6.10)
[2023-12-06 05:38] LABS: ALT (SGPT) 6 U/L (8-55); AST (SGOT) 11 U/L (5-34); Albumin 2.9 g/dL (3.4-4.8); Alkaline Phosphatase 53 U/L (40-110); Anion Gap 13 mmol/L (10-20); BUN (Urea Nitrogen) 6 mg/dL (8.4-25.7); Bilirubin, Total 1.2 mg/dL (0.2-1.2); Calc. Creatinine Clearance 121 mL/min (70-130); Calcium 7.9 mg/dL (7.8-10.44); Carbon Dioxide 19 mmol/L (23-31); Chloride 110 mmol/L (98-107); Estimated GFR 106; Globulin 2.5 g/dL (2.4-3.5); Glucose 102 mg/dL (80-115); Potassium 3.9 mmol/L (3.5-5.1); Protein, Total 5.4 g/dL (5.8-8.1); Sodium 138 mmol/L (136-145)
[2023-12-06] MEDS: Levothyroxine Sodium 88 MCG TAB PO SCH (05:50)
[2023-12-06] MEDS: Insulin Lispro 100 UNIT/ML 10 ML VIAL SC PRN (16:57)
[2023-12-06] MEDS ORDERED: Lorazepam 1 MG TAB PO PRN (21:44)
[2023-12-07 00:52] VITALS: BP 142/83; TEMP 98.2
[2023-12-07 06:25] LABS: ALT (SGPT) 6 U/L (8-55); AST (SGOT) 15 U/L (5-34); Alkaline Phosphatase 56 U/L (40-110); Anion Gap 10 mmol/L (10-20); BUN (Urea Nitrogen) 5 mg/dL (8.4-25.7); Bilirubin, Total 0.8 mg/dL (0.2-1.2); Calc. Creatinine Clearance 108 mL/min (70-130); Calcium 8.3 mg/dL (7.8-10.44); Carbon Dioxide 24 mmol/L (23-31); Chloride 108 mmol/L (98-107); Estimated GFR 102; Globulin 2.8 g/dL (2.4-3.5); Glucose 190 mg/dL (80-115); Potassium 4.3 mmol/L (3.5-5.1); Protein, Total 5.8 g/dL (5.8-8.1); Sodium 138 mmol/L (136-145)
[2023-12-07 06:29] LABS: #Basophils 0.03 10x3/uL (0.0-0.2); %Basophils 0.5 % (0.0-1.0); %Eosinophils 2.6 % (0.0-10.0); %Lymphocytes 28.9 % (21.0-51.0); %Monocytes 8.3 % (0.0-10.0); %Neutrophils 59.2 % (42.0-75.0); Hematocrit 39.6 % (42.0-52.0); Hemoglobin 12.9 g/dL (14.0-18.0); Mean Corpuscular HGB CONC 32.6 g/dL (32.0-36.0); Mean Corpuscular Volume 95.2 fL (78.0-98.0); Mean Platelet Volume 9.4 fL (7.4-10.4); Platelet Count 217 10x3/uL (130-400); RBC Distribution Width 15.1 % (11.5-14.5); Red Blood Cell (RBC) Count 4.16 mill/uL (4.70-6.10)
[2023-12-07] MEDS ORDERED: Thiamine 100 MG TAB PO SCH (21:00)
[2023-12-07] MEDS ORDERED: Lorazepam 0.5 MG TAB PO PRN (21:44)
== END 2023-12-07 14:18 | disposition home or self-care (01) | DRG 439 ==
LOC: ERS 18:29 → T4-A 21:41 → OBSVTOIN 12-05 10:55
PROVIDERS: ADMIT Internal Medicine; ATTEND Hospitalist
DX: K85.20 Alcohol induced acute pancreatitis without necrosis or infection (principal); E87.1 Hypo-osmolality and hyponatremia; E87.20 Acidosis, unspecified; K29.20 Alcoholic gastritis without bleeding; K76.0 Fatty (change of) liver, not elsewhere classified; K86.0 Alcohol-induced chronic pancreatitis; E11.9 Type 2 diabetes mellitus without complications; E03.9 Hypothyroidism, unspecified; D64.9 Anemia, unspecified; F10.10 Alcohol abuse, uncomplicated; F32.A Depression, unspecified; F17.210 Nicotine dependence, cigarettes, uncomplicated; K20.90 Esophagitis, unspecified without bleeding; Z71.41 Alcohol abuse counseling and surveillance of alcoholic
CPT/HCPCS: 36415; 71045; 74177; 80053; 80306; 80307; 82248; 83605; 83690; 83735; 83880; 84100; 84484; 85025; 85610; 85730; 93005; 96365; 96372; 96374; 96375; 96376; G0378; J1650; J2272; J2405; J2470; J3010; J3411; J3475; J7030; Q9967

== ENCOUNTER 2023-12-13 00:17 | Emergency (ER) | payer OTHER ==
[2023-12-13] MEDS ORDERED: Thiamine HCl 200 MG/2 ML VIAL ONE (00:43)
[2023-12-13] MEDS ORDERED: Ondansetron PF 4 MG/2 ML Vial ONE (00:43)
[2023-12-13] MEDS ORDERED: Magnesium 2 GM/50 ML BAG (IN WATER) ONE (00:44)
[2023-12-13 01:20] LABS: #Basophils 0.06 10x3/uL (0.0-0.2); %Basophils 0.7 % (0.0-1.0); %Eosinophils 2.7 % (0.0-10.0); %Lymphocytes 31.8 % (21.0-51.0); %Monocytes 10.8 % (0.0-10.0); %Neutrophils 53.4 % (42.0-75.0); Hematocrit 41.1 % (42.0-52.0); Hemoglobin 13.4 g/dL (14.0-18.0); Mean Corpuscular HGB CONC 32.6 g/dL (32.0-36.0); Mean Corpuscular Hemoglobin 30.4 pg (27.0-31.0); Mean Corpuscular Volume 93.2 fL (78.0-98.0); Mean Platelet Volume 8.4 fL (7.4-10.4); Platelet Count 304 10x3/uL (130-400); RBC Distribution Width 14.6 % (11.5-14.5); Red Blood Cell (RBC) Count 4.41 mill/uL (4.70-6.10)
[2023-12-13 01:22] LABS: Troponin I Less than 0.010 ng/mL (< 0.028)
[2023-12-13 01:26] LABS: ALT (SGPT) 9 U/L (8-55); AST (SGOT) 17 U/L (5-34); Albumin 3.6 g/dL (3.4-4.8); Alkaline Phosphatase 67 U/L (40-110); Anion Gap 19 mmol/L (10-20); BUN (Urea Nitrogen) 6 mg/dL (8.4-25.7); Bilirubin, Total 0.4 mg/dL (0.2-1.2); Calc. Creatinine Clearance 0 mL/min (70-130); Calcium 8.6 mg/dL (7.8-10.44); Carbon Dioxide 17 mmol/L (23-31); Chloride 97 mmol/L (98-107); Estimated GFR 104; Glucose 291 mg/dL (80-115); Potassium 4.1 mmol/L (3.5-5.1); Protein, Total 6.6 g/dL (5.8-8.1); Sodium 129 mmol/L (136-145)
[2023-12-13 01:27] LABS: Lipase 16 U/L (8-78)
[2023-12-13 01:29] LABS: Acetaminophen Less than 10 mcg/mL (Less than 10); Alcohol 358.2 mg/dL (Less than 10); Salicylate Less than 8.0 mg/dL (Less than 8.0)
== END 2023-12-13 08:03 | disposition home or self-care (01) ==
LOC: ERS 00:17
DX: S00.93XA Contusion of unspecified part of head, initial encounter (principal); F10.129 Alcohol abuse with intoxication, unspecified; E11.9 Type 2 diabetes mellitus without complications; F17.210 Nicotine dependence, cigarettes, uncomplicated; W22.8XXA Striking against or struck by other objects, initial encounter
CPT/HCPCS: 36415; 36416; 70450; 80053; 80307; 82140; 83690; 84484; 85025; 93005; 96374; 96375; J2405; J3411; J3475

== ENCOUNTER 2023-12-17 19:02 | Emergency (ER) | payer OTHER | END 2023-12-17 19:53 | disposition left against medical advice (07) | LOC: ERS 19:02 | DX: Z53.21 Procedure and treatment not carried out due to patient leaving prior to being seen by health care provider (principal) ==

== ENCOUNTER 2023-12-20 21:46 | Emergency (ER) | payer OTHER ==
[2023-12-20] MEDS ORDERED: Morphine 2 MG/ML VIAL ONE (21:57)
[2023-12-20] MEDS ORDERED: Ondansetron PF 4 MG/2 ML Vial ONE (21:57)
[2023-12-20 22:14] LABS: #Basophils 0.06 10x3/uL (0.0-0.2); %Basophils 0.7 % (0.0-1.0); %Eosinophils 2.2 % (0.0-10.0); %Lymphocytes 30.2 % (21.0-51.0); %Monocytes 8.3 % (0.0-10.0); %Neutrophils 57.8 % (42.0-75.0); Hematocrit 41.7 % (42.0-52.0); Hemoglobin 14.5 g/dL (14.0-18.0); Mean Corpuscular HGB CONC 34.8 g/dL (32.0-36.0); Mean Corpuscular Hemoglobin 30.7 pg (27.0-31.0); Mean Corpuscular Volume 88.3 fL (78.0-98.0); Mean Platelet Volume 8.3 fL (7.4-10.4); Platelet Count 232 10x3/uL (130-400); RBC Distribution Width 14.3 % (11.5-14.5); Red Blood Cell (RBC) Count 4.72 mill/uL (4.70-6.10)
[2023-12-20 22:25] LABS: Alcohol 196.9 mg/dL (Less than 10)
[2023-12-20 22:27] LABS: ALT (SGPT) 9 U/L (8-55); AST (SGOT) 16 U/L (5-34); Albumin 3.8 g/dL (3.4-4.8); Alkaline Phosphatase 73 U/L (40-110); Anion Gap 17 mmol/L (10-20); BUN (Urea Nitrogen) Less than 4 mg/dL (8.4-25.7); Bilirubin, Total 0.7 mg/dL (0.2-1.2); Calc. Creatinine Clearance 0 mL/min (70-130); Calcium 8.8 mg/dL (7.8-10.44); Carbon Dioxide 17 mmol/L (23-31); Chloride 96 mmol/L (98-107); Estimated GFR 106; Globulin 3.1 g/dL (2.4-3.5); Glucose 129 mg/dL (80-115); Lipase 18 U/L (8-78); Potassium 3.7 mmol/L (3.5-5.1); Protein, Total 6.9 g/dL (5.8-8.1); Sodium 126 mmol/L (136-145)
== END 2023-12-20 23:16 | disposition home or self-care (01) ==
LOC: ERS 21:46
DX: K86.1 Other chronic pancreatitis (principal); F10.129 Alcohol abuse with intoxication, unspecified; F17.210 Nicotine dependence, cigarettes, uncomplicated
CPT/HCPCS: 36415; 80053; 80307; 83690; 85025; 93005; 96374; 96375; J2272; J2405